=== PATIENT | female | born 1955 | race Caucasian/White ===

== ENCOUNTER 2016-11-17 09:20 | Observation (INO) | payer OTHER ==
[~2016-11-17] VITALS: Ht 152.4 cm; Wt 94.4 kg
[2016-11-17] VITALS (9 sets, daily range): BP systolic 156–185; BP diastolic 73–102; PULSE 72–83; RESP 16–19; TEMP 98.4–98.7; O2SAT 95–99
[2016-11-17] MEDS ORDERED: PROPOFOL 200 MG/20 ML AMP IV ONE ×2 (09:47→12:46)
[2016-11-17 11:00] LABS: BLOOD, URINE NEG (NEG); GLUCOSE,URINE NEG (NEG); KETONE, URINE NEG (NEG); NITRITE,URINE NEG (NEG)
[2016-11-17] MEDS ORDERED: SODIUM CHLOR 0.9% 1000 ML INJ 1,000 ML IV SCH (11:03)
[2016-11-17 11:05] LABS: BACTERIA, URINE MOD /hpf; COMMENT (UR) CULTURE INDICATED; CULTURE IF INDICATED CULTURE INDICATED; METHOD OF COLLECTION CLEAN CATCH; SQUAMOUS EPITHELIAL CELL URINE 0-5 /hpf (0-5); URINE COLOR YELLOW (YELLW/STRAW); WBC, URINE 0-2 /hpf (0-5)
--- NOTE | 2016-11-17 11:12 | PD ---
HPI Chief Complaint: Abdominal Pain Time Seen by Provider: 11:03 Travel History International Travel<30 days: No Contact w/Intl Traveler<30days: No Traveled to known affect area: No History of Present Illness HPI 61-year-old female presents emergency department for evaluation of epigastric pain for the past 2-3 weeks. Patient states that it actually started near the of September and has just been waxing and waning. States the pain is sharp without radiation. Denies any chest pain or shortness of breath. She states she went to urgent care facility and had an EKG is started on medicine for reflux which she's been taking and has not been any better. She presents emergency department for further evaluation [facility] Past Medical History Hypertension: Yes Tetanus Vaccination: Unknown Influenza Vaccination: No ?: Not LMP: 7 YEARS Menopausal: Yes Past Surgical History Other Surgery: Yes (MELANOMA REMOVED) Social History Alcohol Use: No (OCC) Tobacco Use: No Substance Use: No Allergies-Medications (Allergen,Severity, Reaction): Coded Allergies: ibuprofen (Verified Allergy, Severe, EDEMA, 11/17/16) morphine (Verified Allergy, Severe, HIVES, 11/17/16) Sulfa (Sulfonamide Antibiotics) (Verified Allergy, Unknown, HIVES, 11/17/16 ) hydrochlorothiazide (Verified Allergy, Unknown, CHOKING, 11/17/16) lisinopril (Verified Allergy, Unknown, CHOKING, 11/17/16) Reported Meds & Prescriptions Reported Meds & Active Scripts Active Reported Omeprazole 20 Mg Cap Review of Systems Except as stated in HPI: all other systems reviewed are Neg Physical Exam Narrative GENERAL: Well-developed well-nourished in no obvious distress. SKIN: Focused skin assessment warm/dry. HEAD: Atraumatic. Normocephalic. EYES: Pupils equal and round. No scleral icterus. No injection or drainage. ENT: No nasal bleeding or discharge. Mucous membranes pink and moist. NECK: Trachea midline. No JVD. CARDIOVASCULAR: Regular rate and rhythm. No murmur appreciated. Pulses motor and sensory intact distally in all 4 extremities. RESPIRATORY: No accessory muscle use. Clear to auscultation. Breath sounds equal bilaterally. GASTROINTESTINAL: Abdomen soft, non-tender, nondistended. Hepatic and splenic margins not palpable. No abdominal tenderness, no rebound no percussive tenderness. MUSCULOSKELETAL: No obvious deformities. No clubbing. No cyanosis. No edema. NEUROLOGICAL: Awake and alert. No obvious cranial nerve deficits. Motor grossly within normal limits. Normal speech. PSYCHIATRIC: Appropriate mood and affect; insight and judgment normal. Data Data Last Documented VS Vital Signs Date Time Temp Pulse Resp B/P (MAP) Pulse Ox O2 Delivery O2 Flow Rate FiO2 11/17/16 12:44 74 18 176/86 (116) 95 Room Air 11/17/16 09:31 98.4 Orders Orders Urinalysis - C+S If Indicated (11/17/16 10:49) Complete Blood Count With Diff (11/17/16 11:03) Comprehensive Metabolic Panel (11/17/16 11:03) Lipase (11/17/16 11:03) Iv Access Insert/Monitor (11/17/16 11:03) Ecg Monitoring (11/17/16 11:03) Oximetry (11/17/16 11:03) Ondansetron Inj (Zofran Inj) (11/17/16 11:15) Sodium Chlor 0.9% 1000 Ml Inj (Ns 1000 M (11/17/16 11:03) Sodium Chloride 0.9% Flush (Ns Flush) (11/17/16 11:15) Electrocardiogram (11/17/16 11:03) Al-Mag Hy-Si 40-40-4 Mg/Ml Liq (Mag-Al P (11/17/16 11:15) Lidocaine 2% Viscous (Xylocaine 2% Visco (11/17/16 11:15) Urine Culture (11/17/16 10:55) Troponin I (11/17/16 11:25) Admit Order (Ed Use Only) (11/17/16 ) Labs Laboratory Tests Test 11/17/16 10:55 11/17/16 11:30 Urine Collection Type CLEAN CATCH Urine Color YELLOW Urine Turbidity CLEAR Urine pH 8.0 Urine Specific [place] 1.021 Urine Protein TRACE mg/dL Urine Glucose (UA) NEG mg/dL Urine Ketones NEG mg/dL Urine Occult Blood NEG Urine Nitrite NEG Urine Bilirubin NEG Urine Leukocyte Esterase NEG Urine WBC 0-2 /hpf Urine Squamous Epithelial Cells 0-5 /hpf Urine Bacteria MOD /hpf Microscopic Urinalysis Comment CULTURE INDICATED Urine Collection Time 10:55 White Blood Count 8.1 TH/MM3 Red Blood Count 5.34 MIL/MM3 Hemoglobin 15.1 GM/DL Hematocrit 45.4 % Mean Corpuscular Volume 85.0 FL Mean Corpuscular Hemoglobin 28.2 PG Mean Corpuscular Hemoglobin Concent 33.2 % Red Cell Distribution Width 12.6 % Platelet Count 219 TH/MM3 Mean Platelet Volume 10.0 FL Neutrophils (%) (Auto) 71.5 % Lymphocytes (%) (Auto) 16.7 % Monocytes (%) (Auto) 7.6 % Eosinophils (%) (Auto) 0.5 % Basophils (%) (Auto) 3.7 % Neutrophils # (Auto) 5.9 TH/MM3 Lymphocytes # (Auto) 1.3 TH/MM3 Monocytes # (Auto) 0.6 TH/MM3 Eosinophils # (Auto) 0.0 TH/MM3 Basophils # (Auto) 0.3 TH/MM3 CBC Comment DIFF FINAL Differential Comment Prothrombin Time 10.7 SEC Prothromb Time International Ratio 1.0 RATIO Activated Partial Thromboplast Time 26.4 SEC Blood Urea Nitrogen 14 MG/DL Creatinine 0.80 MG/DL Random Glucose 91 MG/DL Total Protein 8.2 GM/DL Albumin 3.8 GM/DL Calcium Level 8.6 MG/DL Alkaline Phosphatase 92 U/L Aspartate Amino Transf (AST/SGOT) 34 U/L Alanine Aminotransferase (ALT/SGPT) 31 U/L Total Bilirubin 0.6 MG/DL Sodium Level 140 MEQ/L Potassium Level 4.5 MEQ/L Chloride Level 108 MEQ/L Carbon Dioxide Level 24.7 MEQ/L Anion Gap 7 MEQ/L Estimat Glomerular Filtration Rate 72 ML/MIN Troponin I 0.06 NG/ML Lipase 265 U/L MDM Medical Decision Making Medical Screen Exam Complete: Yes Emergency Medical Condition: Yes Interpretation(s) EKG shows sinus rhythm with sinus arrhythmia. Normal axis and normal R-wave progression. T-wave inversions in lead 1 and aVL which is a nonspecific finding. No concerning ST segment changes. Intervals within normal limits. This abnormal EKG. Differential Diagnosis ACS, pancreatitis, cholecystitis, gastritis. Narrative Course Patient roomed emerged permit, given GI cocktail Zofran and fluids is feeling better after the above. Given second ED visit EKG shows some T-wave abnormalities, troponin was added and minimally elevated at 0.06. Did consider given the patient aspirin however she states her entire face swells with ibuprofen. We'll hold the time being. Given her minimal elevation in troponin as well as her EKG symptoms and epigastric discomfort I recommended observation status for her and she is agreeable. Patient was discussed with Dr. Tenzin Sherman will assume care. Diagnosis Primary Impression: Epigastric pain Additional Impression: Elevated troponin I level Admitting Information Admitting Physician Requests: Observation Condition: Stable Adrien Modi MD Nov 17, 2016 11:12
[2016-11-17] MEDS ORDERED: SODIUM CHLORIDE 0.9% FLUSH 10 ML FLUSH IV FLUSH PRN ×2 (11:15→13:15)
[2016-11-17] MEDS ORDERED: LIDOCAINE VISCOUS 2% SOLN 15 ML UDC PO ONE (11:15)
[2016-11-17] MEDS ORDERED: ONDANSETRON HCL 4 MG/2 ML VIAL IVP ONE (11:15)
[2016-11-17] MEDS ORDERED: ALUMINUM/MAGNESIUM/SIMETH 30 ML CUP PO ONE (11:15)
[2016-11-17 11:45] LABS: AUTOMATED NEUTROPHIL # 5.9 TH/MM3 (1.8-7.7); BASOPHIL # 0.3 TH/MM3 (0-0.2); BASOPHIL % 3.7 % (0.0-2.0); EOSINOPHIL % 0.5 % (0.0-4.0); HEMATOCRIT 45.4 % (35.0-46.0); HEMO FLAGS DIFF FINAL; LYMPH % 16.7 % (9.0-44.0); LYMPHOCYTE # 1.3 TH/MM3 (1.0-4.8); MEAN CORPUSCULAR HEMOGLOBIN 28.2 PG (27.0-34.0); MEAN CORPUSCULAR HGB CONC 33.2 % (32.0-36.0); MONO % 7.6 % (0.0-8.0); NEUT % 71.5 % (16.0-70.0); PLATELET COUNT 219 TH/MM3 (150-450); RED BLOOD COUNT 5.34 MIL/MM3 (4.00-5.30); RED CELL DISTRIBUTION WIDTH 12.6 % (11.6-17.2); WHITE BLOOD COUNT 8.1 TH/MM3 (4.0-11.0)
[2016-11-17 11:51] LABS: CHLORIDE 108 MEQ/L (98-107); POTASSIUM 4.5 MEQ/L (3.5-5.1); SODIUM (NA) 140 MEQ/L (136-145)
[2016-11-17 11:56] LABS: ANION GAP 7 MEQ/L (5-15); BICARBONATE 24.7 MEQ/L (21.0-32.0); BLOOD UREA NITROGEN 14 MG/DL (7-18)
[2016-11-17 11:59] LABS: AST (GOT) 34 U/L (15-37); GLOMERULAR FILTRATION RATE 72 ML/MIN (>89)
[2016-11-17 12:01] LABS: TOTAL BILIRUBIN ADULT 0.6 MG/DL (0.2-1.0)
[2016-11-17 12:02] LABS: ALKALINE PHOSPHATASE 92 U/L (45-117)
[2016-11-17 12:04] LABS: ALT (GPT) 31 U/L (10-53)
[2016-11-17] MEDS ORDERED: OMEP20CA2 (13:08)
[2016-11-17] MEDS ORDERED: NALOXONE HCL 0.4 MG/ML AMP IV PRN (13:15)
[2016-11-17] MEDS ORDERED: ACETAMINOPHEN 325 MG TAB PO PRN (13:15)
[2016-11-17] MEDS ORDERED: TEMAZEPAM 15 MG CAP PO PRN (13:15)
[2016-11-17] MEDS ORDERED: ONDANSETRON HCL 4 MG/2 ML VIAL IVP PRN (13:15)
[2016-11-17] MEDS ORDERED: NITROGLYCERIN 2% OINT 1 GM PACKET TOPICAL ONE (13:30)
[2016-11-17] MEDS: PANTOPRAZOLE SODIUM 40 MG VIAL IV PUSH SCH (13:37)
[2016-11-17 14:41] LABS: APTT (PATIENT) 26.4 SEC (24.3-30.1); PROTHROMBIN TIME - PATIENT 10.7 SEC (9.8-11.6)
--- NOTE | 2016-11-17 14:43 | RADRPT ---
EXAM DATE/TIME: 11/17/2016 14:26 [facility] COMPARISON: No previous studies available for comparison. INDICATIONS : Lower chest pain for 2 weeks. MEDICAL HISTORY : None. SURGICAL HISTORY : None. ENCOUNTER: Initial ACUITY: 2 weeks PAIN SCORE: 5/10 LOCATION: Bilateral lower chest FINDINGS: PA and lateral views of the chest demonstrate the lungs to be symmetrically aerated without evidence of mass, infiltrate or effusion. The cardiomediastinal contours are unremarkable. Osseous structure s are intact. CONCLUSION: No acute disease. Antwan Bobby MD on November 17, 2016 at 14:42 Board Certified Radiologist. This report was verified electronically.
[2016-11-17] MEDS: CARVEDILOL 3.125 MG TAB PO SCH ×2 (15:14→21:20)
[2016-11-17] MEDS ORDERED: ALUMINUM/MAGNESIUM/SIMETH 30 ML CUP PO PRN (17:00)
[2016-11-17] MEDS: DEXT 5%-NACL 0.45% 1000 ML INJ 1,000 ML IV SCH (17:18)
--- NOTE | 2016-11-17 18:34 | MH ---
cc: FAVIOLA CARROLL MD DATE OF ADMISSION 11/17/2016 ADMISSION DIAGNOSIS Abdominal pain. HISTORY OF PRESENT ILLNESS The patient is a very pleasant 60-year-old female who states that starting approximately October 02 she started developing abdominal pain, mid epigastric, that she states came in waves. She states that she had this pain on a daily basis for approximately two weeks. Finally, the pain subsided on its own. She was doing relatively well until last week when she had a recurrence of the pain on Saturday. She went to [facility] at [facility] and she was started on Omeprazole. She states that initially she thought the Omeprazole was helping her. However, she again started experiencing the pain on a regular basis. She describes the pain again as coming in waves. She feels bloated. She denies any true reflux. She says she does have some pain behind her right shoulder at times. She cannot relate the pain to any food intake. She has been on a bland diet this last week. She tells me she had a duodenal ulcer in the past. This pain is not similar to that. Finally today she presented to the emergency room to be evaluated. In the course of the evaluation, an EKG was done which according to the emergency room doctor showed some flipped T-waves. A troponin was also done that came back 0.6. She states in the emergency room she did get a GI cocktail and this did help her somewhat. PAST MEDICAL HISTORY 1. Hypertension that she says she was eventually able to get on off the medications on her own 2. Anxiety many years ago PAST SURGICAL HISTORY Cervical spine fusion. ALLERGIES SULFA HYDROCHLOROTHIAZIDE IBUPROFEN LISINOPRIL MORPHINE HABITS She consumes alcohol on rare occasion. She does not smoke. SOCIAL HISTORY She is . She is here in the hospital with her . She is actually retired. 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 FAMILY HISTORY Mother is recently from colon cancer. She is actually supposed to go up for a Memorial this Saturday. REVIEW OF SYSTEMS See HPI. She denies any actual chest pain, shortness of breath, cough. She states her bowel movements have been normal. There has been no change in her bowel movements. She denied any actual emesis. She has been voiding well. PHYSICAL EXAMINATION VITAL SIGNS: Temperature 98.6, pulse of 77, respirations 19, blood pressure 156/73, pulse ox is 97% on room air. GENERAL: She is alert and oriented lying in the hospital bed. She looks uncomfortable. HEENT: She is normocephalic atraumatic. EOMs intact. She has a moist oral mucosa. NECK: Supple. LUNGS: Clear. HEART: Regular. She is not tachycardiac. ABDOMEN: Globose. She is tender to palpation in the mid epigastric and the right upper quadrant region but no real rebound or guarding. EXTREMITIES: No clubbing, cyanosis or edema. LABORATORY DATA White count of 8.1, hemoglobin of 15.1, hematocrit of 45.4. Sodium was 140, potassium was 4.5, chloride was 108, BUN 14, creatinine 0.8, GFR was 72, glucose 91. LFTs were normal. Troponin was 0.06 as stated, lipase was 265. PT was 10.7, INR was one, PTT was 26.4. UA showed moderate bacteria. IMAGING STUDIES Chest x-ray was normal. ASSESSMENT/PLAN A 61-year-old female presenting to the emergency room with abdominal pain. Her symptoms actually truly sound more GI than cardiac at this point. She has been admitted to get serial enzymes and troponins as well as EKGs. However, at this point I am going to proceed with a right upper quadrant ultrasound tonight to evaluate the gallbladder. In terms of her hypertension, her blood pressure has improved with some Coreg. We will continue with that. Further recommendations as the case develops. MD LIZETH Ramírez/ /5:49 PM /6:16 PM
--- NOTE | 2016-11-17 20:24 | RADRPT ---
EXAM DATE/TIME: 11/18/2016 00:55 [facility] COMPARISON: No previous studies available for comparison. INDICATIONS : Epigastric pain; gallstones. MEDICAL HISTORY : Hypertension. SURGICAL HISTORY : Melanoma removed. ENCOUNTER: Initial ACUITY: 3 weeks PAIN SCORE: 8/10 LOCATION: Right upper quadrant MEASUREMENTS: LIVER: 14.4 cm length COMMON DUCT: 3 mm RIGHT KIDNEY: 10.4 x 4.7 x 5.5 cm FINDINGS: The gallbladder is intact without any evidence for gallstones, gallbladder wall thickening, or perich olecystic fluid. The visualized liver, head of the pancreas, and right kidney appear grossly intact for technique. Limited examination due to extensive gas. CONCLUSION: Unremarkable study. Wild Stone MD on November 17, 2016 at 20:22 Board Certified Radiologist. This report was verified electronically.
[2016-11-17] MEDS ORDERED: traMADol HCL 50 MG TAB PO PRN (21:15)
[2016-11-17] MEDS: SODIUM CHLORIDE 0.9% FLUSH 10 ML FLUSH IV FLUSH SCH (21:20)
[2016-11-17] MEDS: NITROGLYCERIN 2% OINT 1 GM PACKET TOPICAL SCH (21:21)
[2016-11-18] VITALS (11 sets, daily range): BP systolic 129–160; BP diastolic 73–92; PULSE 58–78; RESP 16–18; TEMP 97–98.9; O2SAT 93–98
[2016-11-18] MEDS: NITROGLYCERIN 2% OINT 1 GM PACKET TOPICAL SCH ×4 (00:15→18:08)
[2016-11-18] MEDS: ONDANSETRON HCL 4 MG/2 ML VIAL IV PUSH PRN ×3 (00:15→09:40)
[2016-11-18] MEDS: DEXT 5%-NACL 0.45% 1000 ML INJ 1,000 ML IV SCH (04:38)
[2016-11-18 05:59] LABS: AUTOMATED NEUTROPHIL # 4.3 TH/MM3 (1.8-7.7); BASOPHIL % 0.3 % (0.0-2.0); EOSINOPHIL % 0.1 % (0.0-4.0); HEMATOCRIT 42.4 % (35.0-46.0); HEMO FLAGS DIFF FINAL; LYMPH % 22.6 % (9.0-44.0); LYMPHOCYTE # 1.5 TH/MM3 (1.0-4.8); MEAN CELL VOLUME 85.9 FL (80.0-100.0); MEAN CORPUSCULAR HEMOGLOBIN 28.4 PG (27.0-34.0); MEAN CORPUSCULAR HGB CONC 33.1 % (32.0-36.0); MONO % 11.3 % (0.0-8.0); NEUT % 65.7 % (16.0-70.0); PLATELET COUNT 207 TH/MM3 (150-450); RED BLOOD COUNT 4.94 MIL/MM3 (4.00-5.30); RED CELL DISTRIBUTION WIDTH 12.6 % (11.6-17.2); WHITE BLOOD COUNT 6.5 TH/MM3 (4.0-11.0)
[2016-11-18 06:13] LABS: CHLORIDE 107 MEQ/L (98-107); POTASSIUM 3.8 MEQ/L (3.5-5.1); SODIUM (NA) 140 MEQ/L (136-145)
[2016-11-18 06:22] LABS: ANION GAP 6 MEQ/L (5-15); BICARBONATE 26.9 MEQ/L (21.0-32.0); BLOOD UREA NITROGEN 10 MG/DL (7-18)
[2016-11-18 06:25] LABS: ALT (GPT) 25 U/L (10-53); AST (GOT) 20 U/L (15-37); GLOMERULAR FILTRATION RATE 59 ML/MIN (>89)
[2016-11-18 06:26] LABS: TOTAL BILIRUBIN ADULT 0.6 MG/DL (0.2-1.0)
[2016-11-18 06:28] LABS: ALKALINE PHOSPHATASE 86 U/L (45-117)
[2016-11-18 07:24] LABS: LDL CHOLESTEROL 93 MG/DL (0-99)
[2016-11-18] MEDS: CARVEDILOL 3.125 MG TAB PO SCH ×2 (07:48→21:22)
[2016-11-18] MEDS: SODIUM CHLORIDE 0.9% FLUSH 10 ML FLUSH IV FLUSH SCH ×2 (07:48→21:22)
--- NOTE | 2016-11-18 12:21 | RADRPT ---
EXAM DATE/TIME: 11/18/2016 10:44 [facility] COMPARISON: No previous studies available for comparison. INDICATIONS : Epigastric pain. Abnormal EKG. DOSE: 27.4 mCi Tc99m Myoview at stress. 8.8 mCi Tc99m Myoview at rest. 0.4 mg Lexiscan STRESS SYMPTOMS: Nausea, hot and dizziness. EJECTION FRACTION: > 70% MEDICAL HISTORY : Hypertension. SURGICAL HISTORY : Fusion, cervical. ENCOUNTER: Initial ACUITY: 2 weeks PAIN SCALE: 5/10 LOCATION: Epigastric region. TECHNIQUE: The patient underwent pharmacologic stress with infusion of prescribed dose. Continuous ECG tracing was monitored during stress. Gated SPECT imaging was performed after stress and conventional SPECT i maging was performed at rest. The examination was performed on a SPECT/CT scanner, both attenuation and non-corrected datasets were reviewed. FINDINGS: DISTRIBUTION: The maximum perfused segment at stress is in the septal wall. PERFUSION STUDY: The pattern of perfusion at stress is within normal limits. GATED STUDY: There is intact wall motion and thickening without hypokinetic or dyskinetic segments. CONCLUSION: 1. No reversible perfusion defect to suggest ischemia. 2. Normal ejection fraction. RISK CATEGORY: Low (<1% Annual Mortality Rate) Antwan Bobby MD on November 18, 2016 at 12:19 Board Certified Radiologist. This report was verified electronically.
[2016-11-18] MEDS ORDERED: REGADENOSON INJ 0.4 MG/5 ML SYR IV ONE (12:46)
[2016-11-18] MEDS: PANTOPRAZOLE SODIUM 40 MG VIAL IV PUSH SCH (13:06)
--- NOTE | 2016-11-18 15:25 | EKG ---
Date Performed: 11/17/2016 Time Performed: 11:15:27 PTAGE: 61 years EKG: Sinus rhythm WITH SINUS ARRHYTHMIA Nonspecific T wave change laterally ABNORMAL ECG NO PREVIOUS TRACING DOCTOR: Car Galvan Interpretating Date/Time 11/18/2016 15:23:25
--- NOTE | 2016-11-18 15:34 | MB ---
cc: CARMELO MCKEON MD DATE OF CONSULTATION: 11/18/2016. REASON FOR CONSULTATION: Epigastric pain. HISTORY OF PRESENT ILLNESS: 60-year-old female patient with history of duodenal ulcer diagnosed 20 years ago who presented with severe epigastric pain that started earlier than this time back in September when she had severe epigastric pain associated with nausea and vomiting. That pain subsided and recurred several times in less severity. A few days ago, the patient started to have this pain again that was described as stabbing in nature 10/10 with nausea. The patient also complains of bloating. The patient was unable to keep anything down for the fear of increasing the pain. In the emergency room, the patient had a initial evaluation that showed negative for cardiac events including EKG and troponin level and was admitted for further evaluation. PAST MEDICAL HISTORY: The patient is known to have hypertension but is currently off medication Anxiety disorder for several years. PAST SURGICAL HISTORY: 1. She had cervical spine fusion surgery. 2. Previous colonoscopy seven years ago that was reported as normal. An upper endoscopy at the same time was normal. MEDICATIONS: None. ALLERGIES: 1. SULFA. 2. HYDROCHLOROTHIAZIDE. 3. IBUPROFEN. 4. LISINOPRIL. 5. MORPHINE. PSYCHOSOCIAL HISTORY: The patient is . Retired. Rare alcohol use. No smoking. FAMILY HISTORY: Mother with colon cancer. REVIEW OF SYSTEMS All fourteen systems negative other than the ones mentioned in the history of present illness. PHYSICAL EXAMINATION: GENERAL: On examination, the patient was found to be comfortable and not in distress or in pain and hemodynamically stable. VITAL SIGNS: Temperature of 98.5, pulse of 78, respiratory rate of 12, blood pressure 140/70. Pulse oximetry of 98% on room air. HEAD AND NECK: She is atraumatic and normocephalic. Pupils equal and react to light. Supple neck. No lymphadenopathy. No thyromegaly. CHEST: Clear to auscultation bilaterally. No crackles or wheezes. HEART: Regular rate and rhythm. No murmurs. ABDOMEN: Soft with minimal tenderness in the epigastric area but no rebound tenderness. No rigidity. No hepatosplenomegaly. EXTREMITIES: Normal pulses. No edema. NEUROLOGICAL EXAMINATION: Cranial nerves II through XII are grossly intact. No focal motor or sensory deficit. LABORATORY DATA: CBC within normal limits. Chemistry normal including kidney function tests and liver enzymes. IMAGING STUDIES: Ultrasound unremarkable study. ASSESSMENT: 60-year-old female patient who presented with: 1. Epigastric pain of several months duration that got worse over the last week. 2. History of duodenal ulcer twenty years ago. 3. Negative EGD and colonoscopy seven years ago. 4. Unremarkable laboratory tests and ultrasound. PLAN: Will keep the patient n.p.o. for possible endoscopy tomorrow. the procedure was explained to the patient including risks, benefits and possible complications and she agreed to proceed with that in the morning. Meanwhile, continue her on IV proton pump inhibitor, antiemetic p.r.n. IV hydration. Further recommendations to follow. Carmelo ANTONIO/MELINA /1:29 PM /3:10 PM DESTINY
--- NOTE | 2016-11-18 15:42 | EKG ---
Date Performed: 11/17/2016 Time Performed: 18:30:03 PTAGE: 61 years EKG: Sinus rhythm Nonspecific T wave change anterolaterally Compared to prior tracing no significant change ABNORMAL E CG PREVIOUS TRACING : 11/17/2016 14.25 DOCTOR: Car Galvan Interpretating Date/Time 11/18/2016 15:41:45
--- NOTE | 2016-11-18 15:42 | EKG ---
Date Performed: 11/17/2016 Time Performed: 14:25:32 PTAGE: 61 years EKG: Sinus rhythm Nonspecific T wave change laterally Compared to prior tracing no significant change ABNORMAL ECG PREVIOUS TRACING : 11/17/2016 11.15 DOCTOR: Car Galvan Interpretating Date/Time 11/18/2016 15:41:25
[2016-11-18] MEDS ORDERED: ATROPINE/SCOPOLAM/HYOSCYAM/PB ELIXIR 10 ML CUP PO PRN (16:00)
--- NOTE | 2016-11-18 16:01 | HHI.PR ---
Subjective Remarks no pain since stress test, ambulating , states was on losartan 100 mg and amlodipine 10 mg in the past when her blood pressure needed to be treated Objective Vitals Vital Signs Date Time Temp Pulse Resp B/P (MAP) Pulse Ox O2 Delivery O2 Flow Rate FiO2 11/18/16 12:00 97.4 75 18 152/79 (103) 96 11/18/16 08:47 18 11/18/16 08:00 98.6 64 18 160/79 (106) 96 11/18/16 07:48 96 21 11/18/16 07:45 97.0 71 18 152/92 (112) 11/18/16 04:36 98.0 67 16 158/92 (114) 98 11/18/16 01:24 98.9 78 18 159/82 (107) 97 11/18/16 00:31 98.9 78 18 159/82 (107) 97 11/17/16 23:42 96 21 11/17/16 21:00 83 11/17/16 20:53 98.7 72 16 185/102 (129) 96 11/17/16 16:54 98.6 77 19 160/84 (109) 97 11/17/16 15:59 95 21 Result Diagram: 11/18/16 0539 11/18/16 0539 Imaging Last Impressions Gall Bladder Ultrasound 11/17/16 0000 Signed Impressions: Service Date/Time: Friday, November 18, 2016 00:55 - CONCLUSION: Unremarkable study. Wild Stone MD Chest X-Ray 11/17/16 0000 Signed Impressions: Service Date/Time: Thursday, November 17, 2016 14:26 - CONCLUSION: No acute disease. Antwan Bobby MD Objective Remarks Lying in bed NAD Lungs cta heart rrr no murmur Abdomen good bowel sounds no rebound ext no edema A/P Problem List: (1) Epigastric pain ICD Codes: R10.13 - Epigastric pain Status: Acute Plan: ruq ultrasound was negative, seen by gi and scheduled for egd in am interestingly has nitro patch applied once she returned from stress test (2) Elevated troponin I level ICD Codes: R74.8 - Abnormal levels of other serum enzymes Status: Resolved Plan: lexiscan was negative today (3) Hypertension ICD Codes: I10 - Essential (primary) hypertension Status: Chronic Plan: will resume her amlodipine today and monitor, her blood pressure has not been well controlled since admission tho she states at home her systolics are usually in the 130's Problem Qualifiers (1) Hypertension: Qualified Codes: I10 - Essential (primary) hypertension Elaine Ayala MD Nov 18, 2016 16:01
[2016-11-18] MEDS: amLODIPine BESYLATE 5 MG TAB PO SCH (17:06)
[2016-11-18] MEDS: SODIUM CHLOR 0.45% 1000 ML INJ 1,000 ML IV SCH (17:06)
[2016-11-19] VITALS (8 sets, daily range): BP systolic 116–166; BP diastolic 66–92; PULSE 58–69; RESP 16–18; TEMP 96.2–98.1; O2SAT 95–100
[2016-11-19] MEDS: NITROGLYCERIN 2% OINT 1 GM PACKET TOPICAL SCH ×2 (00:49→04:41)
[2016-11-19] MEDS: SODIUM CHLOR 0.45% 1000 ML INJ 1,000 ML IV SCH ×2 (04:41→16:12)
[2016-11-19] MEDS: CARVEDILOL 3.125 MG TAB PO SCH (09:00)
[2016-11-19] MEDS: amLODIPine BESYLATE 5 MG TAB PO SCH (09:00)
[2016-11-19] MEDS: SODIUM CHLORIDE 0.9% FLUSH 10 ML FLUSH IV FLUSH SCH ×2 (09:00→20:22)
--- NOTE | 2016-11-19 09:57 | HHI.GIFU ---
Subjective Remarks slight pain, less nausea today Objective Vitals I&O Vital Signs Date Time Temp Pulse Resp B/P (MAP) Pulse Ox O2 Delivery O2 Flow Rate FiO2 11/19/16 09:18 97.9 69 18 159/86 (110) 99 11/19/16 08:00 97.1 63 16 149/83 (105) 96 11/19/16 04:39 97.2 58 18 117/66 (83) 97 11/19/16 00:14 98.1 59 16 116/68 (84) 98 11/18/16 20:30 97.5 60 18 129/73 (91) 97 11/18/16 20:00 58 11/18/16 19:47 95 21 11/18/16 16:00 97.8 62 18 151/84 (106) 93 11/18/16 12:00 97.4 75 18 152/79 (103) 96 I/O 11/18/16 11/18/16 11/18/16 11/19/16 11/19/16 11/19/16 07:00 15:00 23:00 07:00 15:00 23:00 Intake Total 979 ml 0 ml 1115 ml 1388 ml Balance 979 ml 0 ml 1115 ml 1388 ml Intake Oral 0 ml IV Total 979 ml 1115 ml 1388 ml # Voids 9 1 1 # Bowel Movements 0 Laboratory Date/Time Source Procedure Growth Status 11/17/16 10:55 Urine Clean Catch Urine Culture - Final 50-100,000 CFU/ML MIXED AYE... Complete Physical Exam HEENT: Pupils round and reactive to light; normocephalic; atraumatic; no jaundice. Throat is clear. NECK: Neck is supple, no JVD, no lymphadenopathy. CHEST: Chest is clear to auscultation and percussion. CARDIAC: Regular rate and rhythm with no murmur gallop or rubs. ABDOMEN: Soft, nondistended, minimal epigastric tenderness; no hepatosplenomegaly; bowel sounds are present in all four quadrants. EXTREMITIES: No clubbing, cyanosis, or edema. SKIN: Normal; no rash; no jaundice. RECREATIONAL AIDE: No focal deficits; alert and oriented times three. Assessment and Plan Plan patient came C/O abdominal pain with nausea and vomiting, could be gastroenteritis, EGD was positive for minimal gastritis, does not explain the pain plan CT of the abdomen continue PPI start feeding Chema Esteban MD Nov 19, 2016 09:57
[2016-11-19] MEDS ORDERED: DIATRIZOATE MEGLUM/DIATRIZOATE SOD 9 ML CUP PO ONE (11:00)
--- NOTE | 2016-11-19 11:27 | HHI.PR ---
Subjective Remarks No further significant waves of pain. hungry Objective Vitals Vital Signs Date Time Temp Pulse Resp B/P (MAP) Pulse Ox O2 Delivery O2 Flow Rate FiO2 11/19/16 09:18 97.9 69 18 159/86 (110) 99 11/19/16 08:00 97.1 63 16 149/83 (105) 96 11/19/16 04:39 97.2 58 18 117/66 (83) 97 11/19/16 00:14 98.1 59 16 116/68 (84) 98 11/18/16 20:30 97.5 60 18 129/73 (91) 97 11/18/16 20:00 58 11/18/16 19:47 95 21 11/18/16 16:00 97.8 62 18 151/84 (106) 93 11/18/16 12:00 97.4 75 18 152/79 (103) 96 Result Diagram: 11/18/16 0539 11/18/16 0539 Imaging Last Impressions Myocardial Perfusion Scan Nuc Med 11/17/16 0000 Signed Impressions: Service Date/Time: Friday, November 18, 2016 10:44 - CONCLUSION: 1. No reversible perfusion defect to suggest ischemia. 2. Normal ejection fraction. RISK CATEGORY: Low (<1%% Annual Mortality Rate) Antwan Bobby MD Gall Bladder Ultrasound 11/17/16 0000 Signed Impressions: Service Date/Time: Friday, November 18, 2016 00:55 - CONCLUSION: Unremarkable study. Wild Stone MD Chest X-Ray 11/17/16 0000 Signed Impressions: Service Date/Time: Thursday, November 17, 2016 14:26 - CONCLUSION: No acute disease. Antwan Bobby MD Last Impressions Gall Bladder Ultrasound 11/17/16 0000 Signed Impressions: Service Date/Time: Friday, November 18, 2016 00:55 - CONCLUSION: Unremarkable study. Wild Stone MD Chest X-Ray 11/17/16 0000 Signed Impressions: Service Date/Time: Thursday, November 17, 2016 14:26 - CONCLUSION: No acute disease. Antwan Bobby MD Objective Remarks At side of bed drinking contrast NAD Lungs cta heart rrr no murmur ext no edema A/P Problem List: (1) Epigastric pain ICD Codes: R10.13 - Epigastric pain Status: Acute Plan: ruq ultrasound was negative, seen by gi and scheduled for egd , per gi note showed minimal gastritis, ct scan ordered by gi interestingly has nitro patch applied once she returned from stress test (2) Elevated troponin I level ICD Codes: R74.8 - Abnormal levels of other serum enzymes Status: Resolved Plan: lexiscan was negative (3) Hypertension ICD Codes: I10 - Essential (primary) hypertension Status: Chronic Plan: will resume her amlodipine today and monitor, her blood pressure has not been well controlled since admission tho she states at home her systolics are usually in the 130's, they will bring her cuff from home today, doesnt look like she has received her amlodipine today, will verify Assessment and Plan Shes feeling better and would like to try to eat, if ct scan is negative t/c d/ c home today if ok with gi Problem Qualifiers (1) Hypertension: Qualified Codes: I10 - Essential (primary) hypertension Elaine Ayala MD Nov 19, 2016 11:26
--- NOTE | 2016-11-19 14:25 | RADRPT ---
EXAM DATE/TIME: 11/19/2016 12:52 [facility] COMPARISON: No previous studies available for comparison. INDICATIONS : Non-specific abdominal pain with nausea and vomiting. ORAL CONTRAST: Prescribed oral contrast ingested. RADIATION DOSE: 20.90 CTDIvol (mGy) MEDICAL HISTORY : Hypertension. SURGICAL HISTORY : Fusion, cervical. ENCOUNTER: Initial ACUITY: 3 days PAIN SCALE: 4/10 LOCATION: abdomen TECHNIQUE: Volumetric scanning of the abdomen and pelvis was performed. Using automated exposure control and ad justment of the mA and/or kV according to patient size, radiation dose was kept as low as reasonably achievable to obtain optimal diagnostic quality images. DICOM format image data is available electro nically for review and comparison. FINDINGS: LOWER LUNGS: The visualized lower lungs are clear. LIVER: Homogeneous density without lesion. There is no dilation of the biliary tree. No calcified gallston es. SPLEEN: Normal size without lesion. PANCREAS: Within normal limits. KIDNEYS: Normal in size and shape. There is no mass, stone, or hydronephrosis. ADRENAL GLANDS: Within normal limits. VASCULAR: There is no aortic aneurysm. BOWEL/MESENTERY: There is wall thickening involving the distal and terminal ileum. There is also some wall thickening involving the cecum no significant inflammatory changes. No perforation or abscess.. There is no evelyn e intraperitoneal air or fluid. ABDOMINAL WALL: Within normal limits. RETROPERITONEUM: There is no lymphadenopathy. BLADDER: No wall thickening or mass. REPRODUCTIVE: Within normal limits. INGUINAL: There is no lymphadenopathy or hernia. MUSCULOSKELETAL: Within normal limits for patient age. CONCLUSION: 1. Wall thickening involving the distal and terminal ileum and including the cecum. Infectious and in flammatory etiologies should be considered. 2. No bowel obstruction, abdominal free air or free fluid. Antwan Bobby MD on November 19, 2016 at 14:18 Board Certified Radiologist. This report was verified electronically.
[2016-11-19] MEDS ORDERED: PEG (High)/E-LYTE SOLN 4000 ML BTL PO ONE (15:30)
[2016-11-19] MEDS: PANTOPRAZOLE SODIUM 40 MG VIAL IV PUSH SCH (16:12)
[2016-11-19] MEDS: LOSARTAN 50 MG TAB PO SCH (18:30)
[2016-11-20] VITALS: BP 126/68; PULSE 70; RESP 16; TEMP 97.1; O2SAT 93
[2016-11-20] MEDS: SODIUM CHLOR 0.45% 1000 ML INJ 1,000 ML IV SCH ×2 (03:45→15:40)
[2016-11-20 04:00] VITALS: BP 139/73; PULSE 70; RESP 16; TEMP 97.6; O2SAT 93
[2016-11-20 07:15] VITALS: BP 160/81; PULSE 82; RESP 20; TEMP 98; O2SAT 96
[2016-11-20 07:30] VITALS: BP 160/71; PULSE 70; RESP 16; TEMP 97.6; O2SAT 96
--- NOTE | 2016-11-20 09:15 | HHI.GIFU ---
Subjective Remarks patient feeling better, tolerated prep for colonoscopy CT scan showed inflammation of the terminal ileum and ascending colon Objective Vitals I&O Vital Signs Date Time Temp Pulse Resp B/P (MAP) Pulse Ox O2 Delivery O2 Flow Rate FiO2 11/20/16 07:30 97.6 70 16 160/71 (100) 96 11/20/16 07:15 98.0 82 20 160/81 (107) 96 11/20/16 04:00 97.6 70 16 139/73 (95) 93 11/20/16 00:00 97.1 70 16 126/68 (87) 93 11/19/16 20:15 69 11/19/16 20:00 97.3 64 16 141/76 (97) 99 11/19/16 19:19 98 21 11/19/16 12:00 96.2 67 16 166/92 (116) 100 11/19/16 09:18 97.9 69 18 159/86 (110) 99 I/O 11/19/16 11/19/16 11/19/16 11/20/16 11/20/16 11/20/16 06:59 14:59 22:59 06:59 14:59 22:59 Intake Total 1388 ml 300 ml 334 ml 740 ml Balance 1388 ml 300 ml 334 ml 740 ml Intake Oral 300 ml 250 ml 240 ml IV Total 1388 ml 84 ml 500 ml # Voids 1 1 4 # Bowel Movements 3 Laboratory Date/Time Source Procedure Growth Status 11/17/16 10:55 Urine Clean Catch Urine Culture - Final 50-100,000 CFU/ML MIXED AYE... Complete Physical Exam HEENT: Pupils round and reactive to light; normocephalic; atraumatic; no jaundice. Throat is clear. NECK: Neck is supple, no JVD, no lymphadenopathy. CHEST: Chest is clear to auscultation and percussion. CARDIAC: Regular rate and rhythm with no murmur gallop or rubs. ABDOMEN: Soft, nondistended, no tenderness; no hepatosplenomegaly; bowel sounds are present in all four quadrants. EXTREMITIES: No clubbing, cyanosis, or edema. SKIN: Normal; no rash; no jaundice. 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 Assessment and Plan Plan patient came C/O abdominal pain with nausea and vomiting, could be gastroenteritis, EGD was positive for minimal gastritis, does not explain the pain ct showed inflammation of the cecum and terminal ileum colonoscopy was done not able to go to the terminal ileum patient colon is twisted most likely at the hepatic flexure, Bx done, no inflammation seen ACBE today capaule endoscopy as outpatient. continue PPI start feeding after ACBE Chema Esteban MD Nov 20, 2016 09:15
[2016-11-20] MEDS: SODIUM CHLORIDE 0.9% FLUSH 10 ML FLUSH IV FLUSH SCH (10:01)
[2016-11-20] MEDS: LOSARTAN 50 MG TAB PO SCH (10:01)
[2016-11-20] MEDS: amLODIPine BESYLATE 5 MG TAB PO SCH (10:01)
[2016-11-20 11:41] VITALS: BP 142/74; PULSE 66; RESP 20; TEMP 97.7; O2SAT 97
[2016-11-20] MEDS ORDERED: MAGNESIUM CITRATE SOLN 300 ML BTL PO ONE ×2 (12:00→18:00)
[2016-11-20] MEDS: PANTOPRAZOLE SODIUM 40 MG VIAL IV PUSH SCH (14:00)
--- NOTE | 2016-11-20 14:13 | RADRPT ---
EXAM DATE/TIME: 11/20/2016 12:57 [facility] COMPARISON: No previous studies available for comparison. INDICATIONS : Incomplete colonoscopy. Abnormal CT scan. Please evaluate terminal ileum. Epigastric pain. Bloating. FLUORO TIME: 4.6 minutes IMAGE COUNT: 18 CONTRAST: 1. Polibar ACB Barium Sulfate (96% w/w) MEDICAL HISTORY : Hypertension. Duodenal ulcer. SURGICAL HISTORY : Fusion, cervical. Melanoma removed. ENCOUNTER: Subsequent ACUITY: 1 month PAIN SCORE: 5/10 LOCATION: abdomen. FINDINGS: A balloon tip catheter was inserted into the rectum, and air and barium was instilled under fluorosco pic control. The cecum is located in the medial right upper quadrant and is poorly distensible, however otherwise focally unremarkable. The ileocecal valve appears to be competent. The appendix is not seen. The colon is otherwise normal in appearance throughout with no evidence of stricture, fold thickening or ulceration. There is subjectively normal evacuation of the colon. CONCLUSION: Poorly distensible cecum situated in the medial right upper quadrant. Otherwise unremarkable colon. T he distal small bowel is not seen. Jovan Salinas MD on November 20, 2016 at 14:07 Board Certified Radiologist. This report was verified electronically.
[2016-11-20 15:51] VITALS: BP 153/77; PULSE 79; RESP 20; TEMP 98.9; O2SAT 95
--- NOTE | 2016-11-20 17:33 | HHI.PR ---
Subjective Remarks had colonoscopy this am followed by ACBE as was not able to do a complete colonoscopy. States had sandwich and soup this afternoon and so far no recurrent pain. Ready to go home. [facility] for mother from colon cancer this weekend. Objective Vitals Vital Signs Date Time Temp Pulse Resp B/P (MAP) Pulse Ox O2 Delivery O2 Flow Rate FiO2 11/20/16 15:51 98.9 79 20 153/77 (102) 95 11/20/16 11:41 97.7 66 20 142/74 (96) 97 11/20/16 09:35 63 14 138/67 (90) 97 11/20/16 09:20 67 14 135/74 (94) 98 11/20/16 09:10 98.3 76 14 139/57 (84) 100 11/20/16 07:30 97.6 70 16 160/71 (100) 96 11/20/16 07:15 98.0 82 20 160/81 (107) 96 11/20/16 04:00 97.6 70 16 139/73 (95) 93 11/20/16 00:00 97.1 70 16 126/68 (87) 93 11/19/16 20:15 69 11/19/16 20:00 97.3 64 16 141/76 (97) 99 11/19/16 19:19 98 21 11/20/16 11/20/16 11/21/16 14:59 22:59 06:59 # Voids 2 Result Diagram: 11/18/16 0539 11/18/16 0539 Imaging Last Impressions Abdomen/Pelvis CT 11/19/16 0000 Signed Impressions: Service Date/Time: Saturday, November 19, 2016 12:52 - CONCLUSION: 1. Wall thickening involving the distal and terminal ileum and including the cecum. Infectious and inflammatory etiologies should be considered. 2. No bowel obstruction, abdominal free air or free fluid. Antwan Bobby MD Myocardial Perfusion Scan Nuc Med 11/17/16 0000 Signed Impressions: Service Date/Time: Friday, November 18, 2016 10:44 - CONCLUSION: 1. No reversible perfusion defect to suggest ischemia. 2. Normal ejection fraction. RISK CATEGORY: Low (<1%% Annual Mortality Rate) Antwan Bobby MD Gall Bladder Ultrasound 11/17/16 0000 Signed Impressions: Service Date/Time: Friday, November 18, 2016 00:55 - CONCLUSION: Unremarkable study. Wild Stone MD Chest X-Ray 11/17/16 0000 Signed Impressions: Service Date/Time: Thursday, November 17, 2016 14:26 - CONCLUSION: No acute disease. Antwan Bobby MD Last Impressions Myocardial Perfusion Scan Nuc Med 11/17/16 Signed Impressions: Service Date/Time: Friday, November 18, 2016 10:44 - CONCLUSION: 1. No reversible perfusion defect to suggest ischemia. 2. Normal ejection fraction. RISK CATEGORY: Low (<1%% Annual Mortality Rate) Antwan Bobby MD Gall Bladder Ultrasound 11/17/16 0000 Signed Impressions: Service Date/Time: Friday, November 18, 2016 00:55 - CONCLUSION: Unremarkable study. Wild Stone MD Chest X-Ray 11/17/16 Signed Impressions: Service Date/Time: Thursday, November 17, 2016 14:26 - CONCLUSION: No acute disease. Antwan Bobby MD Last Impressions Gall Bladder Ultrasound 11/17/16 Signed Impressions: Service Date/Time: Friday, November 18, 2016 00:55 - CONCLUSION: Unremarkable study. Wild Stone MD Chest X-Ray 11/17/16 Signed Impressions: Service Date/Time: Thursday, November 17, 2016 14:26 - CONCLUSION: No acute disease. Antwan Bobby MD Objective Remarks Lying in bed NAD NAD Lungs cta heart rrr no murmur good bowel sounds nontender ext no edema A/P Problem List: (1) Epigastric pain ICD Codes: R10.13 - Epigastric pain Status: Resolved Plan: ruq ultrasound was negative, seen by gi and scheduled for egd , per gi note showed minimal gastritis, ct scan ordered by gi showed wall thickening of terminal ieum and cecum. Colonoscopy done today was incomplete due to twisting at the hepatic flexure. ACBE showed cecum in mid ruq , poorly distensible ,competent ileocecal valve. She is tolerating food at this point and has had no further pain. Will discharge and have her f/u for possible pill endoscopy per GI note. (2) Elevated troponin I level ICD Codes: R74.8 - Abnormal levels of other serum enzymes Status: Resolved Plan: lexiscan was negative (3) Hypertension ICD Codes: I10 - Essential (primary) hypertension Status: Chronic Plan: Her amlodpine and losartan were resumed and her blood pressure has fluctuated somewhat. Will f/u on and have medication adjusted at that time as needed. Assessment and Plan Discharge home today. Problem Qualifiers (1) Hypertension: Qualified Codes: I10 - Essential (primary) hypertension Elaine Ayala MD Nov 20, 2016 17:33
[2016-11-20] MEDS ORDERED: PANT40TA3 PO (17:40)
[2016-11-20] MEDS ORDERED: COZA50TA PO (17:40)
[2016-11-20] MEDS ORDERED: AMLO5 PO (17:40)
[2016-11-20] MEDS ORDERED: BISACODYL EC 5 MG TABEC PO SCH (18:00)
--- NOTE | 2016-11-20 18:03 | HHI.DS ---
Discharge Summary Admission Date Nov 17, 2016 at 12:45 Discharge Date: Nov 20, 2016 Admitting Diagnosis Chest Pain (1) Epigastric pain Diagnosis: Principal ICD Codes: R10.13 - Epigastric pain Status: Resolved (2) Elevated troponin I level Diagnosis: Principal ICD Codes: R74.8 - Abnormal levels of other serum enzymes Status: Resolved (3) Hypertension Diagnosis: Secondary ICD Codes: I10 - Essential (primary) hypertension Status: Chronic Consultants [facility] Procedures EGD/Colonoscocopy Brief History Patient presented to ED with midepigastric pain coming and going in "waves" troponin elevated at .06, admitted for cardiac evaluation. CBC/BMP: 11/18/16 0539 11/18/16 0539 Significant Findings Laboratory Tests Test 11/17/16 18:59 11/18/16 05:39 Troponin I 0.06 NG/ML (0.02-0.05) Monocytes (%) (Auto) 11.3 % (0.0-8.0) Random Glucose 120 MG/DL (74-106) Estimat Glomerular Filtration Rate 59 ML/MIN (>89) Imaging Last Impressions Abdomen/Pelvis CT 11/19/16 0000 Signed Impressions: Service Date/Time: Saturday, November 19, 2016 12:52 - CONCLUSION: 1. Wall thickening involving the distal and terminal ileum and including the cecum. Infectious and inflammatory etiologies should be considered. 2. No bowel obstruction, abdominal free air or free fluid. Antwan Bobby MD Myocardial Perfusion Scan Nuc Med 11/17/16 0000 Signed Impressions: Service Date/Time: Friday, November 18, 2016 10:44 - CONCLUSION: 1. No reversible perfusion defect to suggest ischemia. 2. Normal ejection fraction. RISK CATEGORY: Low (<1%% Annual Mortality Rate) Antwan Bobby MD Gall Bladder Ultrasound 11/17/16 0000 Signed Impressions: Service Date/Time: Friday, November 18, 2016 00:55 - CONCLUSION: Unremarkable study. KTiffany Stone MD Chest X-Ray 11/17/16 0000 Signed Impressions: Service Date/Time: Thursday, November 17, 2016 14:26 - CONCLUSION: No acute disease. Antwan Bobby MD PE at Discharge Lying in bed NAD NAD Lungs cta heart rrr no murmur good bowel sounds nontender ext no edema Hospital Course Pt had serial troponin and lexiscan. Lexiscan was negative. She had described the pain as RUQ at times into rt shoulder , gallbladder ultrasound was done was negative, She was having emesis and nausea with the pain. GI consult placed they ordered egd that showed minimal gastritis. Ct scan showed thickening of termianl ileum and cecum, colonoscopy was done that was incomplete due to twisting possibly at the hepatic flexure. ACBE was done that showed competent ileocecal valve poorly distensible cecum. At this point patient was pain free and able to tolerate po. She was discharged to f/u with gi for possible pill cam. Her blood pressure was elevated during admission and some of her prior blood pressure medications were resumed, Pt Condition on Discharge: Stable Discharge Disposition: Discharge Home Discharge Instructions DIET: Follow Instructions for: Heart Healthy Diet Activities you can perform: Regular-No Restrictions Follow up Referrals: Gastroenterology - [address] Esteban PCP Follow-up - 11/22/16 with Elaine Ayala MD New Medications: Pantoprazole (Pantoprazole) 40 Mg Tab 30 MG PO DAILY for Reflux, #30 TAB 0 Refills Amlodipine (Norvasc) 5 Mg Tab 5 MG PO DAILY for HTN MDD 10 for 30 Days, #30 TAB Losartan (Cozaar) 50 Mg Tab 50 MG PO DAILY for HTN MDD 100 for 30 Days, #30 TAB Discontinued Medications: Omeprazole (Omeprazole) 20 Mg Cap Elaine Ayala MD Nov 20, 2016 18:03
== END 2016-11-20 19:15 | disposition home or self-care (01) ==
LOC: PHED 09:20 → PHEDA 12:45 → PH3A 15:04
PROVIDERS: ADMIT Legal Medicine; ATTEND Legal Medicine
DX: R10.13 Epigastric pain (principal); K29.70 Gastritis, unspecified, without bleeding; K52.9 Noninfective gastroenteritis and colitis, unspecified; R74.8 Abnormal levels of other serum enzymes; R94.31 Abnormal electrocardiogram [ECG] [EKG]; I10 Essential (primary) hypertension; K21.9 Gastro-esophageal reflux disease without esophagitis; Z87.11 Personal history of peptic ulcer disease; Z85.820 Personal history of malignant melanoma of skin; Z98.1 Arthrodesis status
CPT/HCPCS: 00740; 00810; 43239; 45380; 71020; 74176; 74280; 76705; 78452; 80053; 80061; 81001; 82550; 83690; 83735; 84484; 85025; 85610; 85730; 87086; 88305; 88312; 93005; 93017; 96361; 96374; 96375; 96376; 99285; A9502; C9113; G0378; J2405; J2785; J7030; Q9963

== ENCOUNTER 2016-12-26 19:05 | Emergency (ER) | payer OTHER ==
[~2016-12-26] VITALS: Ht 154.9 cm; Wt 90.7 kg
[~2016-12-26 19:05] MED LIST: AMLO5 PO; COZA50TA PO; PANT40TA3 PO
[2016-12-26 19:10] VITALS: BP 157/91; PULSE 84; RESP 12; TEMP 98.9; O2SAT 95; O2SAT 98
[2016-12-26] MEDS ORDERED: ONDANSETRON HCL 4 MG/2 ML VIAL IV PUSH ONE (19:30)
[2016-12-26] MEDS ORDERED: SODIUM CHLOR 0.9% 1000 ML INJ 1,000 ML IV SCH (19:30)
[2016-12-26] MEDS ORDERED: HYDROmorphone HCL PF 1 MG/ML VIAL IV PUSH ONE (19:30)
[2016-12-26] MEDS ORDERED: SACC1CAP3 PO (19:33)
--- NOTE | 2016-12-26 19:35 | PD ---
HPI Chief Complaint: Abdominal Pain Time Seen by Provider: 19:16 Travel History International Travel<30 days: No Contact w/Intl Traveler<30days: No Traveled to known affect area: No History of Present Illness HPI This 61-year-old female is complaining of abdominal pain. She's been having right upper quadrant pain for 3 days. She says the pain is been fairly constant and is quite severe. She had similar pain and was admitted to the hospital on November 17. At time she had some elevation of her troponin to 0.06 and she had a cardiac evaluation which was negative. She also had evaluation for abdominal pain at that time. She had a ultrasound of the gallbladder which was negative for stones, wall thickening or pericholecystic fluid. CT scan of the abdomen and pelvis showed some thickening of the terminal ileum. She had a colonoscopy which was unremarkable although there were unable to go as far as they wanted. Capsule endoscopy was recommended. She has not yet had this test. A HIDA scan is also been recommended. It is thought that she might have biliary dyskinesia. She has been having some intermittent pain since then. The pain is brought on by eating. She seems to be okay as long as she doesn't eat. Since the pain started 3 days ago however been fairly persistent. she says she was unable to sleep last night due to the pain PFSH Past Medical History Hypertension: Yes Menopausal: Yes Past Surgical History Other Surgery: Yes (MELANOMA REMOVED) Social History Alcohol Use: No (OCC) Tobacco Use: No Substance Use: No Allergies-Medications (Allergen,Severity, Reaction): Coded Allergies: ibuprofen (Verified Allergy, Severe, EDEMA, 12/26/16) morphine (Verified Allergy, Severe, HIVES, 12/26/16) Sulfa (Sulfonamide Antibiotics) (Verified Allergy, Unknown, HIVES, 12/26/16 ) hydrochlorothiazide (Verified Allergy, Unknown, CHOKING, 12/26/16) lisinopril (Verified Allergy, Unknown, CHOKING, 12/26/16) Reported Meds & Prescriptions Reported Meds & Active Scripts Active Pantoprazole (Pantoprazole Sodium) 40 Mg Tab 30 Mg PO DAILY Cozaar (Losartan Potassium) 50 Mg Tab 50 Mg PO DAILY MDD 100 30 Days Norvasc (Amlodipine Besylate) 5 Mg Tab 5 Mg PO DAILY MDD 10 30 Days Reported Probiotic (Saccharomyces Boulardii) 250 Mg Cap 250 Mg PO BID Review of Systems General / Constitutional: No: Fever, Chills Eyes: No: Diploplia, Blurred Vision HENT: No: Headaches, Vertigo Cardiovascular: No: Chest Pain or Discomfort, Palpitations Respiratory: No: Cough, Shortness of Breath Gastrointestinal: Positive: Abdominal Pain, No: Vomiting, Diarrhea Genitourinary: No: Urgency, Frequency Musculoskeletal: No: Myalgias, Arthralgias Skin: No Rash, No Itching Endocrine: No: Heat Intolerance Hematologic/Lymphatic: No: Easy Bruising Physical Exam Narrative GENERAL: Well-developed female SKIN: Focused skin assessment warm/dry. HEAD: Atraumatic. Normocephalic. EYES: Pupils equal and round. No scleral icterus. No injection or drainage. ENT: No nasal bleeding or discharge. Mucous membranes pink and moist. NECK: Trachea midline. No JVD. CARDIOVASCULAR: Regular rate and rhythm. No murmur appreciated. RESPIRATORY: No accessory muscle use. Clear to auscultation. Breath sounds equal bilaterally. GASTROINTESTINAL: Abdomen soft, there is right upper quadrant tenderness with local guarding nondistended. Hepatic and splenic margins not palpable. MUSCULOSKELETAL: No obvious deformities. No clubbing. No cyanosis. No edema. NEUROLOGICAL: Awake and alert. No obvious cranial nerve deficits. Motor grossly within normal limits. Normal speech. PSYCHIATRIC: Appropriate mood and affect; insight and judgment normal. Data Data Last Documented VS Vital Signs Date Time Temp Pulse Resp B/P (MAP) Pulse Ox O2 Delivery O2 Flow Rate FiO2 12/26/16 20:16 98.4 85 18 133/71 (91) 95 Room Air Orders Orders Complete Blood Count With Diff (12/26/16 19:24) Comprehensive Metabolic Panel (12/26/16 19:24) Lipase (12/26/16 19:24) Urinalysis - C+S If Indicated (12/26/16 19:24) Sodium Chlor 0.9% 1000 Ml Inj (Ns 1000 M (12/26/16 19:30) Ondansetron Inj (Zofran Inj) (12/26/16 19:30) Hydromorphone Pf Inj (Dilaudid Pf Inj) (12/26/16 19:30) Urine Culture (12/26/16 19:56) Labs Laboratory Tests Test 12/26/16 19:45 12/26/16 19:56 White Blood Count 8.6 TH/MM3 Red Blood Count 5.41 MIL/MM3 Hemoglobin 15.3 GM/DL Hematocrit 46.0 % Mean Corpuscular Volume 85.0 FL Mean Corpuscular Hemoglobin 28.3 PG Mean Corpuscular Hemoglobin Concent 33.3 % Red Cell Distribution Width 12.7 % Platelet Count 237 TH/MM3 Mean Platelet Volume 9.7 FL Neutrophils (%) (Auto) 65.2 % Lymphocytes (%) (Auto) 22.6 % Monocytes (%) (Auto) 11.0 % Eosinophils (%) (Auto) 0.8 % Basophils (%) (Auto) 0.4 % Neutrophils # (Auto) 5.5 TH/MM3 Lymphocytes # (Auto) 2.0 TH/MM3 Monocytes # (Auto) 1.0 TH/MM3 Eosinophils # (Auto) 0.1 TH/MM3 Basophils # (Auto) 0.0 TH/MM3 CBC Comment DIFF FINAL Differential Comment Blood Urea Nitrogen 13 MG/DL Creatinine 0.88 MG/DL Random Glucose 103 MG/DL Total Protein 8.1 GM/DL Albumin 3.6 GM/DL Calcium Level 9.4 MG/DL Alkaline Phosphatase 97 U/L Aspartate Amino Transf (AST/SGOT) 27 U/L Alanine Aminotransferase (ALT/SGPT) 36 U/L Total Bilirubin 0.4 MG/DL Sodium Level 139 MEQ/L Potassium Level 3.5 MEQ/L Chloride Level 104 MEQ/L Carbon Dioxide Level 26.8 MEQ/L Anion Gap 8 MEQ/L Estimat Glomerular Filtration Rate 65 ML/MIN Lipase 284 U/L Urine Color YELLOW Urine Turbidity SLIGHT Urine pH 6.0 Urine Specific [place] 1.015 Urine Protein NEG mg/dL Urine Glucose (UA) NEG mg/dL Urine Ketones NEG mg/dL Urine Occult Blood TRACE Urine Nitrite NEG Urine Bilirubin NEG Urine Leukocyte Esterase NEG Urine RBC 0-3 /hpf Urine WBC 3-5 /hpf Urine Squamous Epithelial Cells 6-8 /hpf Urine Bacteria MANY /hpf Microscopic Urinalysis Comment CULTURE INDICATED MDM Medical Decision Making Medical Screen Exam Complete: Yes Emergency Medical Condition: Yes Medical Record Reviewed: Yes Differential Diagnosis Differential includes cholelithiasis, biliary dyskinesia Narrative Course Symptoms and exam are very suspicious for biliary disease. She has had recent CT and ultrasounds I'm not can repeat them. Her lab work today is normal. I have ordered a milligram of Dilaudid which has provided good pain relief. I will prescribe some Lortab as she is quite miserable with her pain the last couple of days. She'll be released. She has an appointment for a capsule endoscopy on Saturday Diagnosis Primary Impression: Abdominal pain Scripts Ondansetron Odt (Zofran Odt) 4 Mg Tab 4 MG SL Q12HR Y for Nausea/Vomiting, #10 TAB 0 Refills Prov: Logan Shearer MD 12/26/16 Hydrocodone-Acetaminophen (Lortab) 7.5-325 Mg Tab 1 TAB PO Q4H Y for PAIN, #20 TAB 0 Refills Prov: Logan Shearer MD 12/26/16 Disposition: 01 DISCHARGE HOME Condition: Stable Logan Shearer MD Dec 26, 2016 19:35
[2016-12-26 20:15] LABS: BLOOD, URINE TRACE (NEG); GLUCOSE,URINE NEG (NEG); KETONE, URINE NEG (NEG); NITRITE,URINE NEG (NEG)
[2016-12-26 20:16] VITALS: BP 133/71; PULSE 85; RESP 18; TEMP 98.4; O2SAT 95
[2016-12-26 20:16] LABS: AUTOMATED NEUTROPHIL # 5.5 TH/MM3 (1.8-7.7); BASOPHIL % 0.4 % (0.0-2.0); EOSINOPHIL # 0.1 TH/MM3 (0-0.4); EOSINOPHIL % 0.8 % (0.0-4.0); HEMO FLAGS DIFF FINAL; LYMPH % 22.6 % (9.0-44.0); MEAN CORPUSCULAR HEMOGLOBIN 28.3 PG (27.0-34.0); MEAN CORPUSCULAR HGB CONC 33.3 % (32.0-36.0); NEUT % 65.2 % (16.0-70.0); PLATELET COUNT 237 TH/MM3 (150-450); RED BLOOD COUNT 5.41 MIL/MM3 (4.00-5.30); RED CELL DISTRIBUTION WIDTH 12.7 % (11.6-17.2); WHITE BLOOD COUNT 8.6 TH/MM3 (4.0-11.0)
[2016-12-26 20:25] LABS: URINE COLOR YELLOW (YELLW/STRAW)
[2016-12-26 20:27] LABS: BACTERIA, URINE MANY /hpf; COMMENT (UR) CULTURE INDICATED; CULTURE IF INDICATED CULTURE INDICATED; RBC, URINE 0-3 /hpf (0-3)
[2016-12-26 20:27] LABS: CHLORIDE 104 MEQ/L (98-107); POTASSIUM 3.5 MEQ/L (3.5-5.1); SODIUM (NA) 139 MEQ/L (136-145)
[2016-12-26 20:31] LABS: ANION GAP 8 MEQ/L (5-15); BICARBONATE 26.8 MEQ/L (21.0-32.0); BLOOD UREA NITROGEN 13 MG/DL (7-18)
[2016-12-26 20:34] LABS: ALT (GPT) 36 U/L (10-53); AST (GOT) 27 U/L (15-37); GLOMERULAR FILTRATION RATE 65 ML/MIN (>89)
[2016-12-26 20:36] LABS: TOTAL BILIRUBIN ADULT 0.4 MG/DL (0.2-1.0)
[2016-12-26 20:37] LABS: ALKALINE PHOSPHATASE 97 U/L (45-117)
[2016-12-26 20:40] VITALS: RESP 16
[2016-12-26] MEDS ORDERED: HYDR-3534 PO (21:03)
[2016-12-26] MEDS ORDERED: ZOFR4TAB3 SL (21:03)
[2016-12-26 21:52] VITALS: BP 113/64
== END 2016-12-26 22:11 | disposition home or self-care (01) ==
LOC: PHED 19:05
DX: R10.9 Unspecified abdominal pain (principal); I10 Essential (primary) hypertension; Z85.820 Personal history of malignant melanoma of skin
CPT/HCPCS: 80053; 81001; 83690; 85025; 87086; 96361; 96374; 96375; 99284; J1170; J2405; J7030

== ENCOUNTER 2017-01-02 18:57 | Emergency (ER) | payer OTHER ==
[~2017-01-02] VITALS: Ht 152.4 cm; Wt 90.4 kg
[~2017-01-02 18:57] MED LIST changes: +HYDR-3534 PO; +SACC1CAP3 PO; +ZOFR4TAB3 SL
[2017-01-02 19:08] VITALS: BP 174/76; PULSE 79; RESP 20; TEMP 99; O2SAT 99
[2017-01-02 19:22] VITALS: BP 165/82; PULSE 75; RESP 20; O2SAT 98
[2017-01-02] MEDS ORDERED: HYOS0.128 PO (19:39)
[2017-01-02] MEDS ORDERED: SODIUM CHLOR 0.9% 1000 ML INJ 1,000 ML IV SCH (20:02)
[2017-01-02] MEDS ORDERED: SODIUM CHLORIDE 0.9% FLUSH 10 ML FLUSH IV FLUSH PRN (20:15)
[2017-01-02] MEDS ORDERED: ONDANSETRON HCL 4 MG/2 ML VIAL IVP ONE (20:15)
[2017-01-02] MEDS ORDERED: HYDROmorphone HCL PF 1 MG/ML VIAL IVS ONE (20:15)
[2017-01-02 20:22] VITALS: BP 152/80; PULSE 92; RESP 20; O2SAT 96
[2017-01-02 20:26] LABS: BLOOD, URINE NEG (NEG); GLUCOSE,URINE NEG (NEG); KETONE, URINE TRACE mg/dL (NEG); NITRITE,URINE NEG (NEG); PH, URINE 7.5 (5.0-8.5)
[2017-01-02 20:27] LABS: AUTOMATED NEUTROPHIL # 3.8 TH/MM3 (1.8-7.7); BASOPHIL # 0.1 TH/MM3 (0-0.2); BASOPHIL % 1.3 % (0.0-2.0); EOSINOPHIL # 0.1 TH/MM3 (0-0.4); EOSINOPHIL % 1.1 % (0.0-4.0); HEMATOCRIT 41.5 % (35.0-46.0); HEMO FLAGS DIFF FINAL; LYMPHOCYTE # 1.8 TH/MM3 (1.0-4.8); MEAN CELL VOLUME 85.2 FL (80.0-100.0); MEAN CORPUSCULAR HEMOGLOBIN 28.5 PG (27.0-34.0); MEAN CORPUSCULAR HGB CONC 33.4 % (32.0-36.0); MONO % 10.9 % (0.0-8.0); NEUT % 59.7 % (16.0-70.0); PLATELET COUNT 241 TH/MM3 (150-450); RED BLOOD COUNT 4.87 MIL/MM3 (4.00-5.30); RED CELL DISTRIBUTION WIDTH 12.8 % (11.6-17.2); WHITE BLOOD COUNT 6.5 TH/MM3 (4.0-11.0)
[2017-01-02 20:34] LABS: METHOD OF COLLECTION CLEAN CATCH; URINE COLOR YELLOW (YELLW/STRAW)
[2017-01-02 20:35] LABS: CHLORIDE 103 MEQ/L (98-107); COMMENT (UR) CULT NOT INDICATED; CULTURE IF INDICATED CULT NOT INDICATED; POTASSIUM 3.8 MEQ/L (3.5-5.1); SODIUM (NA) 138 MEQ/L (136-145); SQUAMOUS EPITHELIAL CELL URINE 0-5 /hpf (0-5); WBC, URINE 0-2 /hpf (0-5)
[2017-01-02 20:39] LABS: ANION GAP 8 MEQ/L (5-15); BICARBONATE 27.5 MEQ/L (21.0-32.0); BLOOD UREA NITROGEN 18 MG/DL (7-18); PROTHROMBIN TIME - PATIENT 10.7 SEC (9.8-11.6)
--- NOTE | 2017-01-02 20:39 | PD ---
HPI Chief Complaint: Abdominal Pain Time Seen by Provider: 19:39 Travel History International Travel<30 days: No Contact w/Intl Traveler<30days: No Traveled to known affect area: No History of Present Illness HPI Patient is a 61 year old female presents to the ER for evaluation of RUQ abdominal pain. This is her third presentation in the past 3 months same. She had been admitted once by me for cardiac workup which was negative. She is followed up with an outpatient physician who recommended that she have a HIDA scan. The patient states pain is limited to the right upper quadrant, so she was some nausea and nonbilious non-bloody vomiting. She cannot elicit any alleviating or exacerbating factors. No fevers no diarrhea or constipation. The patient states pain is been continuous but has worsened tonight which caused her to come into the emergency department. Denies any ingestion of greasy or fatty food. Patient also relates a history that her sister had gone through similar problems and ultimately had her gallbladder out revealing multiple very small gallstones with size of grains of sand and chronic cholecystitis. PFSH Past Medical History Diminished Hearing: No Hypertension: Yes Medical other: Yes (RECENT WORK UP FOR UNEXPLAINED ABDOMINAL PAIN) Immunizations Current: No Tetanus Vaccination: Unknown Influenza Vaccination: No Menopausal: Yes Past Surgical History Other Surgery: Yes (MELANOMA REMOVED) Social History Alcohol Use: No (OCC) Tobacco Use: No Substance Use: No Allergies-Medications (Allergen,Severity, Reaction): Coded Allergies: ibuprofen (Verified Allergy, Severe, EDEMA, 01/02/17) morphine (Verified Allergy, Severe, HIVES, 01/02/17) Sulfa (Sulfonamide Antibiotics) (Verified Allergy, Unknown, HIVES, 01/02/17 ) hydrochlorothiazide (Verified Allergy, Unknown, CHOKING, 01/02/17) lisinopril (Verified Allergy, Unknown, CHOKING, 01/02/17) Reported Meds & Prescriptions Reported Meds & Active Scripts Active Percocet (Oxycodone-Acetaminophen) 10-325 mg Tab 1 Tab PO Q6H PRN Zofran Odt (Ondansetron Odt) 4 Mg Tab 4 Mg SL Q12HR PRN Pantoprazole (Pantoprazole Sodium) 40 Mg Tab 30 Mg PO DAILY Cozaar (Losartan Potassium) 50 Mg Tab 50 Mg PO DAILY MDD 100 30 Days Norvasc (Amlodipine Besylate) 5 Mg Tab 5 Mg PO DAILY MDD 10 30 Days Reported Hyoscyamine (Hyoscyamine Sulfate) 0.125 Mg Tab 0.125 Mg PO Q6H Review of Systems Except as stated in HPI: all other systems reviewed are Neg Physical Exam Narrative GENERAL: Well-developed, obese female, appears uncomfortable. SKIN: Focused skin assessment warm/dry. HEAD: Atraumatic. Normocephalic. EYES: Pupils equal and round. No scleral icterus. No injection or drainage. ENT: No nasal bleeding or discharge. Mucous membranes pink and moist. NECK: Trachea midline. No JVD. CARDIOVASCULAR: Regular rate and rhythm. No murmur appreciated. RESPIRATORY: No accessory muscle use. Clear to auscultation. Breath sounds equal bilaterally. GASTROINTESTINAL: Abdomen soft, moderately tender in the right upper quadrant with positive Morales sign., nondistended. Hepatic and splenic margins not palpable. No rebound no percussive tenderness. MUSCULOSKELETAL: No obvious deformities. No clubbing. No cyanosis. No edema. NEUROLOGICAL: Awake and alert. No obvious cranial nerve deficits. Motor grossly within normal limits. Normal speech. PSYCHIATRIC: Appropriate mood and affect; insight and judgment normal. Data Data Last Documented VS Vital Signs Date Time Temp Pulse Resp B/P (MAP) Pulse Ox O2 Delivery O2 Flow Rate FiO2 01/02/17 23:33 78 20 143/69 (93) 98 01/02/17 19:08 99.0 Orders Orders Complete Blood Count With Diff (01/02/17 20:02) Comprehensive Metabolic Panel (01/02/17 20:02) Lipase (01/02/17 20:02) Prothrombin Time / Inr (Pt) (01/02/17 20:02) Act Partial Throm Time (Ptt) (01/02/17 20:02) Urinalysis - C+S If Indicated (01/02/17 20:02) Us Abdomen Gallbladder (01/02/17 ) Iv Access Insert/Monitor (01/02/17 20:02) Ecg Monitoring (01/02/17 20:02) Oximetry (01/02/17 20:02) Ondansetron Inj (Zofran Inj) (01/02/17 20:15) Sodium Chlor 0.9% 1000 Ml Inj (Ns 1000 M (01/02/17 20:02) Sodium Chloride 0.9% Flush (Ns Flush) (01/02/17 20:15) Electrocardiogram (01/02/17 20:02) Hydromorphone Pf Inj (Dilaudid Pf Inj) (01/02/17 20:15) Oxycodone-Acetamin 5-325 Mg (Percocet (01/02/17 23:15) Labs Laboratory Tests Test 01/02/17 20:00 White Blood Count 6.5 TH/MM3 Red Blood Count 4.87 MIL/MM3 Hemoglobin 13.9 GM/DL Hematocrit 41.5 % Mean Corpuscular Volume 85.2 FL Mean Corpuscular Hemoglobin 28.5 PG Mean Corpuscular Hemoglobin Concent 33.4 % Red Cell Distribution Width 12.8 % Platelet Count 241 TH/MM3 Mean Platelet Volume 10.4 FL Neutrophils (%) (Auto) 59.7 % Lymphocytes (%) (Auto) 27.0 % Monocytes (%) (Auto) 10.9 % Eosinophils (%) (Auto) 1.1 % Basophils (%) (Auto) 1.3 % Neutrophils # (Auto) 3.8 TH/MM3 Lymphocytes # (Auto) 1.8 TH/MM3 Monocytes # (Auto) 0.7 TH/MM3 Eosinophils # (Auto) 0.1 TH/MM3 Basophils # (Auto) 0.1 TH/MM3 CBC Comment DIFF FINAL Differential Comment Prothrombin Time 10.7 SEC Prothromb Time International Ratio 1.0 RATIO Activated Partial Thromboplast Time 27.0 SEC Urine Collection Type CLEAN CATCH Urine Color YELLOW Urine Turbidity MARKED Urine pH 7.5 Urine Specific [place] 1.015 Urine Protein NEG mg/dL Urine Glucose (UA) NEG mg/dL Urine Ketones TRACE mg/dL Urine Occult Blood NEG Urine Nitrite NEG Urine Bilirubin NEG Urine Leukocyte Esterase NEG Urine WBC 0-2 /hpf Urine Squamous Epithelial Cells 0-5 /hpf Urine Amorphous Sediment LARGE Microscopic Urinalysis Comment CULT NOT INDICATED Urine Collection Time 2014 Blood Urea Nitrogen 18 MG/DL Creatinine 0.98 MG/DL Random Glucose 81 MG/DL Total Protein 7.7 GM/DL Albumin 3.6 GM/DL Calcium Level 9.0 MG/DL Alkaline Phosphatase 80 U/L Aspartate Amino Transf (AST/SGOT) 28 U/L Alanine Aminotransferase (ALT/SGPT) 36 U/L Total Bilirubin 0.4 MG/DL Sodium Level 138 MEQ/L Potassium Level 3.8 MEQ/L Chloride Level 103 MEQ/L Carbon Dioxide Level 27.5 MEQ/L Anion Gap 8 MEQ/L Estimat Glomerular Filtration Rate 57 ML/MIN Lipase 235 U/L MDM Medical Decision Making Medical Screen Exam Complete: Yes Emergency Medical Condition: Yes Differential Diagnosis Cholecystitis, pancreatitis, gastritis. Narrative Course Patient roomed emergency department, given pain medicine and had complete resolution of her symptoms. On reexamination her abdomen is benign. Her labs are reassuring, ultrasound was obtained which shows no abnormality of the gallbladder. With benign abdomen and a recent CAT scan there is no indication for further workup at this time. Discussed with the patient follow-up with a general surgeon for consideration of cholecystectomy. She has HIDA scan scheduled for 2 days from now. The patient was discussed with Dr. Adams who is agreed to see as an outpatient and we'll await the patient's phone call. The patient was given contact information and instructions to call the office. She is stable for discharge. Discussed return to ED criteria and avoidance of fatty foods. Diagnosis Primary Impression: Biliary colic Referrals: Benitez Adams MD Med/Other Pt SpecificInfo: Prescription(s) given Scripts Oxycodone-Acetaminophen (Percocet) 10-325 mg Tab 1 TAB PO Q6H Y for PAIN, #12 TAB 0 Refills Prov: Adrien Modi MD 01/02/17 Disposition: 01 DISCHARGE HOME Condition: Stable Adrien Modi MD Jan 02, 2017 20:39
[2017-01-02 20:42] LABS: ALT (GPT) 36 U/L (10-53); AST (GOT) 28 U/L (15-37); GLOMERULAR FILTRATION RATE 57 ML/MIN (>89)
[2017-01-02 20:43] LABS: TOTAL BILIRUBIN ADULT 0.4 MG/DL (0.2-1.0)
[2017-01-02 20:45] LABS: ALKALINE PHOSPHATASE 80 U/L (45-117)
[2017-01-02 20:53] VITALS: BP 159/69; PULSE 84; RESP 20; O2SAT 97
[2017-01-02 22:00] VITALS: BP 160/65; PULSE 78; RESP 20
--- NOTE | 2017-01-02 22:11 | RADRPT ---
EXAM DATE/TIME: 01/02/2017 21:09 [facility] COMPARISON: US ABDOMEN - GALLBLADDER, November 18, 2016, 0:55. INDICATIONS : Right upper quadrant pain. MEDICAL HISTORY : Hypertension. SURGICAL HISTORY : Fusion, cervical. Melanoma removal. ENCOUNTER: Subsequent ACUITY: 4-6 days PAIN SCORE: 0/10 LOCATION: Right upper quadrant MEASUREMENTS: LIVER: 15.6 cm length COMMON DUCT: 4 mm RIGHT KIDNEY: 11.8 x 4.7 x 5.5 cm FINDINGS: LIVER: Normal echotexture without focal lesion or ductal dilatation. COMMON DUCT: No intraluminal mass or stone visualized. GALLBLADDER: Contains no stones, demonstrates no wall thickening or pericholecystic fluid. PANCREAS: The visualized portions are within normal limits. RIGHT KIDNEY: No evidence of hydronephrosis, stone, or mass. CONCLUSION: Normal examination. Jovan Marcelo MD on January 02, 2017 at 22:08 Board Certified Radiologist. This report was verified electronically.
[2017-01-02] MEDS ORDERED: PERC10TA27 PO (23:06)
[2017-01-02] MEDS ORDERED: oxyCODONE/ACETAMINOPHEN 5 MG/325 MG TAB PO ONE (23:15)
[2017-01-02 23:33] VITALS: BP 143/69
--- NOTE | 2017-01-03 14:54 | EKG ---
Date Performed: 01/02/2017 Time Performed: 20:13:21 PTAGE: 61 years EKG: Sinus rhythm POSSIBLE LEFT ATRIAL ENLARGEMENT ST DEVIATION AND MODERATE T-WAVE ABNORMALITY, CONSIDER LATERAL ISCH EMIA ABNORMAL ECG PREVIOUS TRACING : 11/17/2016 18.30 Compared to prior tracing no significant change DOCTOR: Abdulkadir Adams Interpretating Date/Time 01/03/2017 14:52:14
== END 2017-01-02 23:37 | disposition home or self-care (01) ==
LOC: PHED 18:57
DX: K80.50 Calculus of bile duct without cholangitis or cholecystitis without obstruction (principal); I10 Essential (primary) hypertension; Z79.899 Other long term (current) drug therapy
CPT/HCPCS: 76705; 80053; 81001; 83690; 85025; 85610; 85730; 93005; 96361; 96374; 96375; 99285; J1170; J2405; J7030